=== PATIENT | female | born 1965 | race Hispanic/Latino ===

== ENCOUNTER 2016-06-18 09:44 | Emergency (ER) | payer OTHER ==
[~2016-06-18] VITALS: Ht 152.4 cm; Wt 65.8 kg
[2016-06-18 09:51] VITALS: BP 155/91
--- NOTE | 2016-06-18 10:10 | ED UPPER/LOWER EXTREMITY COMPL ---
History of Present Illness General Chief Complaint: Foot or Ankle Injury Stated Complaint: S/P FALL ON WEDNESDAY, ?R ANKLE PAIN Source: patient Exam Limitations: no limitations Vital Signs & Intake/Output Vital Signs & Intake/Output Vital Signs Date Time Temp Pulse Resp B/P Pulse O2 O2 Flow FiO2 Ox Delivery Rate 06/18 0951 97.6 86 18 155/91 99 Room Air Allergies Coded Allergies: NO KNOWN ALLERGIES (09/07/13) Reconcile Medications No Known Home Medications Triage Note: 50 AND HEAD. STATES SHE FELL ON ICE WEDNESDAY AND HAS HAD PAIN SINCE. AMBULATORY WITH SLIGHT LIMP THOUGH DECLINES OFFER OF MEDS/WHEELCHAIR. STATES SHE IS HAVING A HARD TIME WORKING DUE TO THE PAIN. Triage Nurses Notes Reviewed? yes HPI: 50 YO FEMALE WITH CO R FOOT PAIN AFTER A FALL 2 DAYS AGO, SLIPPED ON A HILL. GETTING WOSRE SINCE THE FALL, LIMPING, PAIN WITH WB. ICE APPLIED WITH MINIMAL RELIEF. + SWELLING. NO PREVIOUS INJURY, NO OTHER INJURY. ACHING PAIN. MODERATE Past History Travel History Traveled to [place] past 21 day No Medical History Any Pertinent Medical History? see below for history Neurological: NONE EENT: NONE Cardiovascular: MVP Respiratory: NONE Gastrointestinal: NONE Hepatic: NONE Renal: NONE Musculoskeletal: NONE Psychiatric: NONE Endocrine: NONE Blood Disorders: NONE Cancer(s): breast cancer (IN REMISSION) FARMWORKER DAIRY/Reproductive: NONE Surgical History Surgical History: non-contributory Psychosocial History Who do you live with Friend Services at Home None What is your primary language Persian Tobacco Use: Never used Family History Hx Contributory? No Review of Systems Review of Systems Constitutional: Reports: see HPI. EENTM: Reports: no symptoms. Respiratory: Reports: no symptoms. Cardiovascular: Reports: no symptoms. Gastrointestinal/Abdominal: Reports: no symptoms. Genitourinary: Reports: no symptoms. Musculoskeletal: Reports: see HPI. Skin: Reports: no symptoms. Neurological/Psychological: Reports: no symptoms. Hematologic/Endocrine: Reports: no symptoms. Immunological: Reports: no symptoms. All Other Systems: Reviewed and Negative Physical Exam Physical Exam General Appearance: well developed/nourished Comments: Well-developed well-nourished no apparent distress. HEENT: Atraumatic, extraocular motion intact Neck: Supple, no lymphadenopathy Back: Nontender Respiratory: No respiratory distress Extremities: No edema, full range of motion Neuro: Alert and oriented x3 Psych: Mood affect normal, normal memory normal judgment. Skin: Warm and dry, no rash on exposed skin Right foot, dorsum of the foot there is tenderness and swelling over the proximal dorsal region over the tarsals. Range of motion is full. There is no pain or instability with Prateek of the first metatarsal. There is no ankle pain or tenderness. Achilles is intact. Neurovascularly intact, range of motion is full. Progress Differential Diagnosis: compartment syndrome, contusion, dislocation, fracture, sprain, tendon injury Plan of Care: Orders Procedure Date/time Status XRY-FOOT COMPLETE, RIGHT 06/18 1016 Active Diagnostic Imaging: Viewed by Me: Radiology Read. Discussed w/RAD: Radiology Read. Radiology Impression: PATIENT: BRIANA POOLE PRESENT AGE: 50 PATIENT ACCOUNT NO: [id number] : 65 LOCATION: [facility] ORDERING PHYSICIAN: YANNA ARROYO SERVICE DATE: 06/18/16 EXAM TYPE: RAD - XRY-FOOT COMPLETE, R EXAMINATION: XR FOOT, RIGHT CLINICAL INFORMATION: Injury to right foot with pain and swelling. COMPARISON: None TECHNIQUE: Right foot 4 views. of the right foot. FINDINGS: No fracture or other acute abnormality is seen. There is hallux valgus with bunion formation at the head of the first metatarsal. IMPRESSION: No acute abnormality. Hallux valgus with bunion formation. DICTATED BY: ANTHONY HEBERT MD DATE/TIME DICTATED:06/18/164 PRINTING MACHINIST:KRYSTLE DATE/TIME TRANSCRIBED:06/18/ Comments: X-ray negative, patient has a foot sprain, Ji wrap applied by myself to the right foot and ankle, neurovascular intact post procedure. Recommend rest ice elevation Motrin and Tylenol orthopedic follow-up in one to 2 weeks. No Lisfranc fracture or deformity noted Departure Departure Disposition: HOME OR SELF CARE Condition: Stable Clinical Impression Primary Impression: Sprain of foot, right Qualifiers: Encounter type: initial encounter Qualified Code: S93.601A - Unspecified sprain of right foot, initial encounter Referrals: BIBIANA SAM,ANGELICA BUI MD,MATT (PCP/Family) Additional Instructions: Rest, ice, compression (ji wrap), elevation. Motrin and Tylenol as needed for pain. Gradual return to activity as tolerated. Follow-up with orthopedist in one to 2 weeks if no better. Departure Forms: Customer Survey General Discharge Information Prescriptions: Current Visit Scripts No Known Home Medications
--- NOTE | 2016-06-18 10:59 | RADIOLOGY REPORT ---
EXAMINATION: XR FOOT, RIGHT CLINICAL INFORMATION: Injury to right foot with pain and swelling. COMPARISON: None TECHNIQUE: Right foot 4 views. of the right foot. FINDINGS: No fracture or other acute abnormality is seen. There is hallux valgus with bunion formation at the head of the first metatarsal. IMPRESSION: No acute abnormality. Hallux valgus with bunion formation.
== END 2016-06-18 11:41 ==
LOC: ERH 09:44
DX: S93.601A Unspecified sprain of right foot, initial encounter (principal); W19.XXXA Unspecified fall, initial encounter
CPT/HCPCS: 73630-RT